=== PATIENT | female | born 1955 | race Caucasian/White ===

== ENCOUNTER 2019-06-20 15:04 | Emergency (ER) | payer MEDICARE ==
[2019-06-20] MEDS ORDERED: DUONEB 0.5-3 MG/3 ml Neb IH ONE ×2 (15:33→15:34)
[2019-06-20] MEDS ORDERED: PROVENTIL 2.5 MG/3 ML NEB IH ONE ×4 (15:33→16:25)
[2019-06-20 15:34] LABS: VBG BASE EXCESS 6.3 (-2.0-2.0); VBG CARBOXYHEMOGLOBIN 3.9 % T HGB (0.0-6.9); VBG HCO3- 29.5 meq/L (22-28); VBG HEMOGLOBIN 15.8; VBG O2 SATURATION 69.1 (95-100); VBG POTASSIUM 6.3 (3.5-5.1); VBG pH 7.51 (7.32-7.42)
--- NOTE | 2019-06-20 15:36 | ERPHSYRPT ---
- History of Present Illness Time Seen by Provider: 06/20/19 15:15 Source: family Exam Limitations: clinical condition, other (Altered mental status) Physician History: the patient is a 63-year-old female with a past history reported to be a recent stroke or bleed diagnosed by her primary care provider, Dr. Almanza, on June 16, 2019 after she was noted to have episodes of confusion and difficulty speaking a week prior to that they presents with a chief complaint of altered mental status. She is accompanied by her daughter and her granddaughter who live with the patient. They report the patient poorly was talking to them yesterday but as the day progressed today she seemed to be more confused and was not talking or acting like her normal self. Is also noted the patient was started on azithromycin on June 16, 2019 for concern for what was believed to be pneumonia after the patient had some difficulty breathing, cough and wheezing. Of note, the patient has a history of COPD but does not have a history of sleep apnea and does not use CPAP for oxygen at home. Patient also has a history of a recently fractured left ankle in which she underwent surgical repair in [place] this past summer and reportedly has been on anticoagulation, specifically Eloquis since that time. Allergies/Adverse Reactions: meperidine [From Demerol] Allergy (Severe, Verified 06/20/19 15:36) sycope Sulfa (Sulfonamide Antibiotics) Allergy (Verified 10/12/15 15:13) Rash Home Medications: Albuterol Sulfate [Ventolin Hfa] 18 gm IH QID 11/22/14 [History] Levothyroxine Sodium 112 Mcg [Synthroid 112 Mcg] 112 mcg PO DAILY 11/22/14 [History] Lorazepam 1 mg [Ativan 1 MG] 2 mg PO QPM 11/22/14 [History] Montelukast Sodium [Singulair] 10 mg PO DAILY 11/22/14 [History] Nebivolol HCl [Bystolic] 20 mg PO DAILY 11/22/14 [History] Nitroglycerin 0.4 mg SL UD PRN 11/22/14 [History] Paroxetine HCl [Paxil] 30 mg PO HS 11/22/14 [History] Theophylline Anhydrous 600 mg PO DAILY 11/22/14 [History] Verapamil HCl [Verapamil ER] 120 mg PO HS 04/22/15 [History] Albuterol Sulfate 4 mg PO DAILY 10/12/15 [History] Ipratropium/Albuterol Sulfate [Combivent Inhaler] 15 gm IH QID 10/12/15 [History ] Albuterol Sulfate [Ventolin] 5 mg IH DAILY 06/20/19 [History] Apixaban [Eliquis] 5 mg PO BID 06/20/19 [History] Baclofen 10 mg [Lioresal 10 mg] 10 mg PO QID 06/20/19 [History] Calcium Carbonate 1,000 mg PO DAILY PRN 06/20/19 [History] Doxepin HCl 25 mg PO HS 06/20/19 [History] Fenofibrate,Micronized 145 mg* [Tricor 145 MG] 145 mg PO HS 06/20/19 [History ] Furosemide [Lasix] 20 mg PO DAILY 06/20/19 [History] Losartan Potassium 100 mg PO DAILY 06/20/19 [History] Omeprazole Magnesium [Prilosec] 20 mg PO DAILY 06/20/19 [History] Simvastatin 20Mg [Zocor 20Mg] 20 mg PO QPM 06/20/19 [History] Sitagliptin Phosphate [Januvia] 100 mg PO DAILY 06/20/19 [History] Tramadol HCl 50 mg [Ultram 50 mg] 50 mg PO DAILY 06/20/19 [History] Umeclidinium [place] [Incruse Ellipta] 62.5 mcg IH DAILY 06/20/19 [History] Hx Tetanus, Diphtheria Vaccination/Date Given: Yes Hx Influenza Vaccination/Date Given: No Hx Pneumococcal Vaccination/Date Given: No - Review of Systems All Other Systems: Unable due to condition - Past Medical History Pertinent Past Medical History: Yes Neurological History: Seizures Cardiac History: Angina, Congestive Heart Failure, Coronary Artery Disease, High Cholesterol, Hypertension, Myocardial Infarction (MS) Respiratory History: Bronchitis, COPD, Emphysema, Pneumonia Endocrine Medical History: Diabetes Type II, Hypothyroidism Musculoskeletal History: Fractures Psycho-Social History: Depression Other Medical History: ULNAR TRANSPOSITION >10 YEARS AGO. HYSTERECTOMY, BLADDER SUSPENSION - Past Surgical History Past Surgical History: Yes Cardiac: Cardiac Catheterization Genitourinary: Other Musculoskeletal: Orthopedic Surgery Female Surgical History: Hysterectomy Other Surgical History: Bladder prolapse, carpel tunnel--BILAT - Social History Smoking Status: Current every day smoker Exposure to second hand smoke: Yes Drug Use: none Patient Lives Alone: Yes - Nursing Vital Signs Nursing Vital Signs: Initial Vital Signs Temperature 97.7 F 06/20/19 15:12 Pulse Rate 52 L 06/20/19 15:12 Respiratory Rate 24 06/20/19 15:12 Blood Pressure 173/109 06/20/19 15:12 O2 Sat by Pulse Oximetry 92 L 06/20/19 15:12 Pain Scale Pain Intensity 0 - Physical Exam General Appearance: mild distress, obese Eye Exam: PERRL/EOMI, eyes nml inspection, No scleral icterus, No pale conjunctivae Ears, Nose, Throat Exam: other (Dry mucus membranes, no evidence of tongue trauma) Neck Exam: JVD, No non-tender, No midline tenderness Respiratory Exam: respiratory distress, diminished breath sounds, crackles/rales , wheezing, other (Prolonged expiratory time with bilateral cour) Cardiovascular Exam: normal peripheral pulses, capillary refill <2 sec, other ( Bradycardia), No regular rate/rhythm (Bradycardia with strong peripheral pulses) Gastrointestinal/Abdomen Exam: soft Pelvic Exam: deferred Rectal Exam: deferred Back Exam: normal inspection Extremity Exam: normal inspection, No pedal edema, No swelling, No tenderness Neurologic Exam: other (Patient seems somnolent, but able to be awoke to voice and tell me her name. She would not obey commands. Unable able to assess mood due to clinical condition. Patient seems to be able to move all extremities) Skin Exam: normal color, warm, dry, No petechiae, No jaundice, No jaundice SpO2 Interpretation: normal O2 Delivery: Room Air - Course Nursing assessment & vital signs reviewed: Yes EKG Interpreted by Me: Left [place] Deviation, prolonged QT interval, NORMAL ST-T, Other (EKG read at 15:30) - Radiology Exams Chest X-ray Interpretation: Interpreted by me, Reviewed by me, Teleradiologist Report , Pneumonia (Poor inspiration film and patient is rotated but evidence of possible right lower lobe pna) - CT Exams Head CT Interpretation: Tele-radiologist Report (Old appearing basal ganglia CVA and possible air in R patternmaker pressure cast space. Discussed with radiology and recommendeding max face CT) Maxillofacial Bones CT Interpretation: Tele-radiologist Report (Air in patternmaker pressure cast space of no clinical significance according to radiologist) Ordered Tests: Medication Summary Discontinued Medications Generic Name Dose Route Start Last Admin Trade Name Charlene PRN Reason Stop Dose Admin Albuterol Sulfate 2.5 mg 06/20/19 15:33 06/20/19 15:52 Proventil 2.5 Mg/3 Ml Neb IH 06/20/19 15:34 2.5 mg STAT ONE Administration Albuterol Sulfate Confirm 06/20/19 15:34 Proventil 2.5 Mg/3 Ml Neb Administered 06/20/19 15:35 Dose 2.5 mg IH .STK-MED ONE Albuterol Sulfate Confirm 06/20/19 16:11 Proventil 2.5 Mg/3 Ml Neb Administered 06/20/19 16:12 Dose 2.5 mg IH .STK-MED ONE Albuterol Sulfate 2.5 mg 06/20/19 16:25 06/20/19 16:26 Proventil 2.5 Mg/3 Ml Neb IH 06/20/19 16:26 2.5 mg STAT ONE Administration Albuterol/Ipratropium 3 ml 06/20/19 15:33 06/20/19 15:35 Duoneb 0.5-3 Mg/3 Ml Neb IH 06/20/19 15:34 3 ml STAT ONE Administration Albuterol/Ipratropium Confirm 06/20/19 15:34 Duoneb 0.5-3 Mg/3 Ml Neb Administered 06/20/19 15:35 Dose 3 ml IH .STK-MED ONE Azithromycin 500 mg in 250 mls @ 250 mls/hr 06/20/19 16:21 06/20/19 16:40 Zithromax 500 Mg/ 250 Ml Nacl Premix IV 06/20/19 17:20 250 mls/hr STAT ONE Administration Ceftriaxone Sodium/Dextrose 2 g in 50 mls @ 100 mls/hr 06/20/19 16:21 17:04 Rocephin 2 Gm-D5w 50ml Bag IV 06/20/19 16:50 Infused STAT STA Infusion Azithromycin Confirm 06/20/19 16:24 Zithromax 500 Mg/ 250 Ml Nacl Premix Administered 06/20/19 16:25 Dose 500 mg in 250 mls @ ud IV .STK-MED ONE Ceftriaxone Sodium/Dextrose Confirm 06/20/19 16:24 Rocephin 2 Gm-D5w 50ml Bag Administered 06/20/19 16:25 Dose 2 g in 50 mls @ ud IV .STK-MED ONE Methylprednisolone Sodium Succinate 125 mg 06/20/19 16:19 06/20/19 16:28 Solu-Medrol 125 Mg IV 06/20/19 16:20 125 mg STAT ONE Administration Methylprednisolone Sodium Succinate Confirm 06/20/19 16:24 Solu-Medrol 125 Mg Administered 06/20/19 16:25 Dose 125 mg .ROUTE .STK-MED ONE Lab/Rad Data: Laboratory Result Diagrams 06/20/19 16:15 06/20/19 Unknown Laboratory Results 06/20/19 06/20/19 06/20/19 Range/Units Unknown Unknown 16:15 WBC (4.0-10.5) K/mm3 RBC (4.1-5.4) M/mm3 Hgb (12.0-16.0) gm/dl Hct (35-47) % MCV (78-100) fl MCH (26-32) pg MCHC (32-36) g/dl RDW (11.5-14.0) % Plt Count (150-450) K/mm3 MPV (6-9.5) fl Segmented Neutrophils (36.0-66.0) % Lymphocytes (Manual) (24-44) % Monocytes (Manual) (0.0-12.0) % Eosinophils (Manual) (0.00-3.0) % Platelet Estimate (NORMAL) RBC Morphology Poikilocytosis Anisocytosis pO2/FiO2 Ratio % VBG pH (7.32-7.42) VBG pCO2 at Pat Temp (42-55) mm/Hg VBG pO2 at Pat Temp (25-40) mm/Hg VBG HCO3 (22-28) meq/L VBG O2 Sat (Beatriz) (95-100) VBG Base Excess (-2.0-2.0) VBG Hemoglobin VBG Carboxyhemoglobin (0.0-6.9) % T HGB POC Potassium (3.5-5.1) Sodium 144 (137-145) mmol/L Potassium 4.0 (3.5-5.1) mmol/L Chloride 105 (98-107) mmol/L Carbon Dioxide 31 H (22-30) mmol/L Anion Gap 11.4 (5-15) MEQ/L BUN 30 H (7-17) mg/dL Creatinine 1.71 H (0.52-1.04) mg/dL Estimated GFR 32.2 ML/MIN Glucose 92 (74-106) mg/dL Lactic Acid (0.4-2.0) Calcium 10.0 (8.4-10.2) mg/dL Total Bilirubin 0.60 (0.2-1.3) mg/dL Direct Bilirubin 0.5 H (0.0-0.4) mg/dL AST 29 (14-36) U/L ALT 9 (0-35) U/L Alkaline Phosphatase 66 (38-126) U/L Ammonia (9-30) umol/L Troponin I (0.000-0.034) ng/mL NT-Pro-B Natriuret Pep 2380 H (0-900) pg/mL Serum Total Protein 7.9 (6.3-8.2) g/dL Albumin 4.2 (3.5-5.0) g/dL TSH 3rd Generation (0.47-4.68) mIU/L Urine Color YELLOW (YELLOW) Urine Appearance CLEAR (CLEAR) Urine pH 8.0 (5-6) Ur Specific [place] 1.015 (1.005-1.025) Urine Protein NEGATIVE (Negative) Urine Ketones NEGATIVE (NEGATIVE) Urine Blood SMALL (0-5) David/ul Urine Nitrite NEGATIVE (NEGATIVE) Urine Bilirubin NEGATIVE (NEGATIVE) Urine Urobilinogen NEGATIVE (0-1) mg/dL Ur Leukocyte Esterase NEGATIVE (NEGATIVE) Urine WBC (Auto) NONE (0-5) /HPF Urine RBC (Auto) 3-5 (0-2) /HPF U Epithel Cells (Auto) NONE (FEW) /HPF Urine Bacteria (Auto) RARE (NEGATIVE) /HPF Urine Culture Reflexed ORDERED SEPARATELY (NO) Urine Glucose NEGATIVE (NEGATIVE) mg/dL Influenza Type A Ag NEGATIVE (NEGATIVE) Influenza Type B Ag NEGATIVE (NEGATIVE) RSV (PCR) NEGATIVE (Negative) 06/20/19 06/20/19 06/20/19 Range/Units 16:15 16:15 16:15 WBC (4.0-10.5) K/mm3 RBC (4.1-5.4) M/mm3 Hgb (12.0-16.0) gm/dl Hct (35-47) % MCV (78-100) fl MCH (26-32) pg MCHC (32-36) g/dl RDW (11.5-14.0) % Plt Count (150-450) K/mm3 MPV (6-9.5) fl Segmented Neutrophils (36.0-66.0) % Lymphocytes (Manual) (24-44) % Monocytes (Manual) (0.0-12.0) % Eosinophils (Manual) (0.00-3.0) % Platelet Estimate (NORMAL) RBC Morphology Poikilocytosis Anisocytosis pO2/FiO2 Ratio % VBG pH (7.32-7.42) VBG pCO2 at Pat Temp (42-55) mm/Hg VBG pO2 at Pat Temp (25-40) mm/Hg VBG HCO3 (22-28) meq/L VBG O2 Sat (Beatriz) (95-100) VBG Base Excess (-2.0-2.0) VBG Hemoglobin VBG Carboxyhemoglobin (0.0-6.9) % T HGB POC Potassium (3.5-5.1) Sodium (137-145) mmol/L Potassium (3.5-5.1) mmol/L Chloride (98-107) mmol/L Carbon Dioxide (22-30) mmol/L Anion Gap (5-15) MEQ/L BUN (7-17) mg/dL Creatinine (0.52-1.04) mg/dL Estimated GFR ML/MIN Glucose (74-106) mg/dL Lactic Acid (0.4-2.0) Calcium (8.4-10.2) mg/dL Total Bilirubin (0.2-1.3) mg/dL Direct Bilirubin (0.0-0.4) mg/dL AST (14-36) U/L ALT (0-35) U/L Alkaline Phosphatase (38-126) U/L Ammonia < 9 L (9-30) umol/L Troponin I < 0.012 (0.000-0.034) ng/mL NT-Pro-B Natriuret Pep (0-900) pg/mL Serum Total Protein (6.3-8.2) g/dL Albumin (3.5-5.0) g/dL TSH 3rd Generation 19.700 H (0.47-4.68) mIU/L Urine Color (YELLOW) Urine Appearance (CLEAR) Urine pH (5-6) Ur Specific [place] (1.005-1.025) Urine Protein (Negative) Urine Ketones (NEGATIVE) Urine Blood (0-5) David/ul Urine Nitrite (NEGATIVE) Urine Bilirubin (NEGATIVE) Urine Urobilinogen (0-1) mg/dL Ur Leukocyte Esterase (NEGATIVE) Urine WBC (Auto) (0-5) /HPF Urine RBC (Auto) (0-2) /HPF U Epithel Cells (Auto) (FEW) /HPF Urine Bacteria (Auto) (NEGATIVE) /HPF Urine Culture Reflexed (NO) Urine Glucose (NEGATIVE) mg/dL Influenza Type A Ag (NEGATIVE) Influenza Type B Ag (NEGATIVE) RSV (PCR) (Negative) 06/20/19 06/20/19 06/20/19 Range/Units 16:15 15:32 15:32 WBC 15.9 H (4.0-10.5) K/mm3 RBC 5.28 (4.1-5.4) M/mm3 Hgb 13.7 (12.0-16.0) gm/dl Hct 44.0 (35-47) % MCV 83.3 (78-100) fl MCH 25.9 L (26-32) pg MCHC 31.1 L (32-36) g/dl RDW 17.2 H (11.5-14.0) % Plt Count 236 (150-450) K/mm3 MPV 12.5 H (6-9.5) fl Segmented Neutrophils 83 H (36.0-66.0) % Lymphocytes (Manual) 11 L (24-44) % Monocytes (Manual) 3 (0.0-12.0) % Eosinophils (Manual) 3 (0.00-3.0) % Platelet Estimate NORMAL (NORMAL) RBC Morphology ABNORMAL Poikilocytosis 1+ Anisocytosis 2+ pO2/FiO2 Ratio 21.0 % VBG pH 7.51 H (7.32-7.42) VBG pCO2 at Pat Temp 37 L (42-55) mm/Hg VBG pO2 at Pat Temp 33 (25-40) mm/Hg VBG HCO3 29.5 H* (22-28) meq/L VBG O2 Sat (Beatriz) 69.1 L (95-100) VBG Base Excess 6.3 H (-2.0-2.0) VBG Hemoglobin 15.8 VBG Carboxyhemoglobin 3.9 (0.0-6.9) % T HGB POC Potassium 6.3 H* (3.5-5.1) Sodium (137-145) mmol/L Potassium (3.5-5.1) mmol/L Chloride (98-107) mmol/L Carbon Dioxide (22-30) mmol/L Anion Gap (5-15) MEQ/L BUN (7-17) mg/dL Creatinine (0.52-1.04) mg/dL Estimated GFR ML/MIN Glucose (74-106) mg/dL Lactic Acid 1.6 (0.4-2.0) Calcium (8.4-10.2) mg/dL Total Bilirubin (0.2-1.3) mg/dL Direct Bilirubin (0.0-0.4) mg/dL AST (14-36) U/L ALT (0-35) U/L Alkaline Phosphatase (38-126) U/L Ammonia (9-30) umol/L Troponin I (0.000-0.034) ng/mL NT-Pro-B Natriuret Pep (0-900) pg/mL Serum Total Protein (6.3-8.2) g/dL Albumin (3.5-5.0) g/dL TSH 3rd Generation (0.47-4.68) mIU/L Urine Color (YELLOW) Urine Appearance (CLEAR) Urine pH (5-6) Ur Specific [place] (1.005-1.025) Urine Protein (Negative) Urine Ketones (NEGATIVE) Urine Blood (0-5) David/ul Urine Nitrite (NEGATIVE) Urine Bilirubin (NEGATIVE) Urine Urobilinogen (0-1) mg/dL Ur Leukocyte Esterase (NEGATIVE) Urine WBC (Auto) (0-5) /HPF Urine RBC (Auto) (0-2) /HPF U Epithel Cells (Auto) (FEW) /HPF Urine Bacteria (Auto) (NEGATIVE) /HPF Urine Culture Reflexed (NO) Urine Glucose (NEGATIVE) mg/dL Influenza Type A Ag (NEGATIVE) Influenza Type B Ag (NEGATIVE) RSV (PCR) (Negative) - Progress Progress: improved Progress Note: 06/20/19 16:35 I spoke to the patient's family and informed them about the need for transfer to a center with neurology and MRI capability. Family agrees to transfer to [facility]. [facility] is currently being paged. 06/20/19 16:[address] Berger, ED physician, who agreed to accept the patient for transfer. The patient will be an ED to ED transfer. Counseled pt/family regarding: lab results, diagnosis, rad results - Departure Departure Disposition: Transfer Clinical Impression: COPD with exacerbation, Pneumonia, Acute encephalopathy, Sepsis, Right lower lobe pneumonia Condition: Stable Critical Care Time: Yes Critical Care Time(excluding separately billable procedures): Critical 30-74 mins Referrals: VIOLET WANG [Primary Care Provider] - Plan of Treatment: The patient presents with AMS and found to be in respiratory distress with wheezing. AMS differential is extensive at this time to include CVA subacute vs old given time course and patient is not a TPA candidate given time course being greater than 3hrs and patient on anticoagulation, medication induced to induce ativan, tramadol, etc., ?serotonin syndrome but I feel this is unlikely, encephalitis vs meningitis but with low suspicion and LP deferred given patient on anticoagulation and respiratory status. She appears to be suffering from a COPD exacerbation and VBG without evidence of hypercapnia to explain her encephalopathy and actually was reassuring. She was treated with serial nebs and steriods in the ED with some noted improvement. CXR also showing RLL infiltrate that could be from a community acquired PNA or represent an aspiration PNA given the context of her recently reported CVA and no reported swallowing study. Ultimately, she was treated with abx and transferred to [facility] for further evaluation and management given no MRI or neurology capability at this facility. Her respiratory status improved and she was able to maintain her own airway during her entire ED stay.
--- NOTE | 2019-06-20 16:11 | XRAY ---
Indication: Unresponsive. Wheezing. Comparison: June 16, 2019. Portable chest is rotated with new right base infiltrate/atelectasis/effusion with stable left base fibrosis/scarring. Heart and mediastinal structures within normal limits.
--- NOTE | 2019-06-20 16:14 | XRAY ---
Indication: Altered mental status. Multiple contiguous axial images obtained through the head without contrast. Comparison: June 16, 2019. Again several images slightly degraded by motion artifact. Grossly stable age-appropriate global atrophy and remote right basal ganglia lacunar infarct. No gross acute intracranial hemorrhage, abnormal extra-axial fluid question, or mass effect. Fourth ventricle is midline without hydrocephalus. Blanchard-white matter differentiation preserved. Bony calvarium intact again with mild hyperostosis frontalis interna. Visualized paranasal sinuses and mastoid air cells remain clear. New air bubbles in the deep right antique auto museum maintenance worker space and adjacent to the right pterygoid plates. Impression: 1. Again motion artifact with grossly stable atrophy and remote right basal ganglial lacunar infarct. 2. No acute intracranial abnormalities. 3. New air bubbles deep right antique auto museum maintenance worker space. Rule out posttraumatic etiology or gas-forming infection. CTDI 62.11
[2019-06-20] MEDS ORDERED: solu-MEDROL 125 MG IV ONE (16:19)
[2019-06-20] MEDS ORDERED: Zithromax 500 MG/ 250 ML NaCl Premix 500 MG/250 ML IVPB IV ONE ×2 (16:21→16:24)
[2019-06-20] MEDS ORDERED: ROCEPHIN 2 Gm-D5w 50ML BAG** 2 G/50 ML IVPB IV STA (16:21)
[2019-06-20] MEDS ORDERED: solu-MEDROL 125 MG ONE (16:24)
[2019-06-20] MEDS ORDERED: ROCEPHIN 2 Gm-D5w 50ML BAG** 2 G/50 ML IVPB IV ONE (16:24)
[2019-06-20 16:28] LABS: Hemoglobin 13.7 gm/dl (12.0-16.0); Mean Cell Volume 83.3 fl (78-100); Mean Corpuscular Hemoglobin 25.9 pg (26-32); Mean Corpuscular Hgb Concent. 31.1 g/dl (32-36); Mean Platelet Volume 12.5 fl (6-9.5); Platelet Count 236 K/mm3 (150-450); Red Blood Count 5.28 M/mm3 (4.1-5.4); Red Cell Distribution Width 17.2 % (11.5-14.0); White Blood Count 15.9 K/mm3 (4.0-10.5)
[2019-06-20 16:44] LABS: Appearance CLEAR (CLEAR); Bacteria RARE /HPF (NEGATIVE); Bilirubin NEGATIVE (NEGATIVE); Blood SMALL Ery/ul (0-5); Glucose NEGATIVE (NEGATIVE); Ketones NEGATIVE (NEGATIVE); Leukocyte Esterase NEGATIVE (NEGATIVE); Nitrite NEGATIVE (NEGATIVE); Protein,Urine Dip NEGATIVE (Negative); Specific Gravity 1.015 (1.005-1.025); Urobilinogen NEGATIVE mg/dL (0-1)
[2019-06-20 16:48] LABS: ALBUMIN 4.2 g/dL (3.5-5.0); ANION GAP 11.4 MEQ/L (5-15); BILIRUBIN,TOTAL 0.6 mg/dL (0.2-1.3); Creatinine 1 1.71 mg/dL (0.52-1.04); Direct Bilirubin 0.5 mg/dL (0.0-0.4); Total Protein 7.9 g/dL (6.3-8.2)
[2019-06-20 16:52] VITALS: O2SAT 98
[2019-06-20 17:03] VITALS: BP 169/85; PULSE 58
--- NOTE | 2019-06-20 17:04 | XRAY ---
Indication: Air bubbles seen deep right grain drier space on same-day CT head. Altered mental status. No known injury. Multiple contiguous axial images obtained through the facial bones. Two-dimensional sagittal and coronal reformatted images obtained. Comparison: None Patient is edentulous. A few tiny air bubbles reidentified in the deep right grain drier space. No acute fracture, suspicious bony lesions, osseous obstructive process, or foreign body. Orbits including roof, aguilar, and floor are intact. TMJ demonstrates mild degenerative changes bilaterally. Paranasal sinuses and nasal passages are clear. Minimal nasal septal deviation to the right. Nasopharynx and oropharynx are clear. Remaining visualized noncontrasted soft tissues are unremarkable. Impression: 1. CT facial bones negative for acute fracture or suspicious bony lesions. 2. Air bubbles deep right grain drier space of uncertain etiology and uncertain clinical significance. 3. Incidental bilateral TMJ degenerative changes. CT DI 43.14
[2019-06-20 17:18] LABS: INFLUENZA A NEGATIVE (NEGATIVE); INFLUENZA B NEGATIVE (NEGATIVE); RESPIRATORY SYNCTIAL VIRUS NEGATIVE (Negative)
[2019-06-20 19:31] LABS: ANISOCYTOSIS 2+; Eosinophil 3 % (0.00-3.0); Lymphocytes 11 % (24-44); Monocyte 3 % (0.0-12.0); Neutrophils 83 % (36.0-66.0); Platelet Estimate NORMAL (NORMAL); Poikilocytosis 1+; Total Cells Counted 100
== END 2019-06-20 17:22 | disposition short-term general hospital (02) ==
LOC: ED 15:04
DX: J44.1 Chronic obstructive pulmonary disease with (acute) exacerbation (principal); J18.1 Lobar pneumonia, unspecified organism; G93.40 Encephalopathy, unspecified; A41.9 Sepsis, unspecified organism; R41.82 Altered mental status, unspecified; I25.10 Atherosclerotic heart disease of native coronary artery without angina pectoris
CPT/HCPCS: 36415; 51702; 70450; 70486; 71045; 80048; 80076; 81001; 82140; 82805; 83605; 83880; 84443; 84484; 85025; 87040; 87086; 87631; 93005; 93041; 94640; 96365; 96374; 99285; 99291; J0456; J0696; J2930; J7609; A9270-GY

== ENCOUNTER 2019-08-02 10:51 | Emergency (ER) | payer MEDICARE ==
[2019-08-02] MEDS ORDERED: Zithromax 500 MG/ 250 ML NaCl Premix 500 MG/250 ML IVPB IV STA (11:06)
[2019-08-02] MEDS ORDERED: BABY ASPIRIN 81 MG CHEW PO ONE (11:06)
[2019-08-02] MEDS ORDERED: ROCEPHIN 1 Gm-D5w 50 ml Bag** 1 G/50 ML IVPB IV STA (11:06)
[2019-08-02] MEDS ORDERED: DUONEB 0.5-3 MG/3 ml Neb IH ONE ×2 (11:06→11:09)
[2019-08-02] MEDS ORDERED: solu-MEDROL 125 MG IV ONE (11:08)
--- NOTE | 2019-08-02 11:35 | ERPHSYRPT ---
- History of Present Illness Time Seen by Provider: 08/02/19 11:00 Source: patient, family Exam Limitations: no limitations Patient Subjective Stated Complaint: INCREASED SHORTNESS OF BREATH, COUGH AND FEVER AT HOME FOR ONE WEEK. HX COPD. COUGHING UP YELLOW SPUTUM. WENT TO [facility] THIS AM AND O2 SAT WAS LOW AT 70. WAS THEN BROUGHT TO ER. Triage Nursing Assessment: TO ER PER W/C. SKIN W/D, COLOR CYANOTIC. RESP RAPID AND SHALLOW. WHEEZES HEARD THROUGHOUT WITH RONCHI. OCCASIONAL DRY COUGH NOTED. OXYGEN APPLIED AT 4l PER N/C. SAT INCREASED TO 98%. RT NOTIFIED. Physician History: known case of COPD , CAD and CHF. There continues to smoke and states she does not have adequately worsening shortness of breath over the last one week along with the cough and sputum. Went to the urgent care and they sent her here. Timing/Duration: week(s) (1) Activities at Onset: activity Severity of Dyspnea-Max: moderate Severity of Dyspnea-Current: moderate Possible Cause: frequent episodes Modifying Factors: Improves With: activity, exertion, lying down Associated Symptoms: constant, wheezing, painful breathing, productive cough, No chest pain/discomfort, No edema, No fever, No insomnia, No loss of appetite, No lightheadedness, No weakness, No ankle swelling, No chills, No hemoptysis, No calf pain, No dizziness, No heaviness, No heart racing, No lightheadedness, No leg swelling, No muscle spasms feet International travel in last 2 weeks: No Allergies/Adverse Reactions: meperidine [From Demerol] Allergy (Severe, Verified 08/02/19 11:55) sycope Sulfa (Sulfonamide Antibiotics) Allergy (Verified 08/02/19 11:55) Rash tramadol Allergy (Verified 08/02/19 11:55) Home Medications: Albuterol Sulfate [Ventolin Hfa] 18 gm IH QID 11/22/14 [History] Levothyroxine Sodium 112 Mcg [Synthroid 112 Mcg] 112 mcg PO DAILY 11/22/14 [History] Lorazepam 1 mg [Ativan 1 MG] 2 mg PO QPM 11/22/14 [History] Montelukast Sodium [Singulair] 10 mg PO DAILY 11/22/14 [History] Nebivolol HCl [Bystolic] 20 mg PO DAILY 11/22/14 [History] Nitroglycerin 0.4 mg SL UD PRN 11/22/14 [History] Paroxetine HCl [Paxil] 30 mg PO HS 11/22/14 [History] Theophylline Anhydrous 600 mg PO DAILY 11/22/14 [History] Verapamil HCl [Verapamil ER] 120 mg PO HS 11/22/14 [History] Albuterol Sulfate 4 mg PO DAILY 10/12/15 [History] Ipratropium/Albuterol Sulfate [Combivent Inhaler] 15 gm IH QID 10/12/15 [History ] Albuterol Sulfate [Ventolin] 5 mg IH DAILY 06/20/19 [History] Apixaban [Eliquis] 5 mg PO BID 06/20/19 [History] Baclofen 10 mg [Lioresal 10 mg] 10 mg PO QID 06/20/19 [History] Calcium Carbonate 1,000 mg PO DAILY PRN 06/20/19 [History] Doxepin HCl 25 mg PO HS 06/20/19 [History] Fenofibrate,Micronized 145 mg* [Tricor 145 MG] 145 mg PO HS 06/20/19 [History ] Furosemide [Lasix] 20 mg PO DAILY 06/20/19 [History] Losartan Potassium 100 mg PO DAILY 06/20/19 [History] Omeprazole Magnesium [Prilosec] 20 mg PO DAILY 06/20/19 [History] Simvastatin 20Mg [Zocor 20Mg] 20 mg PO QPM 06/20/19 [History] Sitagliptin Phosphate [Januvia] 100 mg PO DAILY 06/20/19 [History] Tramadol HCl 50 mg [Ultram 50 mg] 50 mg PO DAILY 06/20/19 [History] Umeclidinium [place] [Incruse Ellipta] 62.5 mcg IH DAILY 06/20/19 [History] Hx Tetanus, Diphtheria Vaccination/Date Given: Yes Hx Influenza Vaccination/Date Given: Yes Hx Pneumococcal Vaccination/Date Given: Yes - Review of Systems Constitutional: No Fever, No Chills Eyes: No Symptoms Ears, Nose, & Throat: No Symptoms Respiratory: Cough, Dyspnea, Wheezing Cardiac: No Chest Pain, No Edema, No Syncope Abdominal/Gastrointestinal: No Abdominal Pain, No Nausea, No Vomiting, No Diarrhea Genitourinary Symptoms: No Dysuria Musculoskeletal: No Back Pain, No Neck Pain Skin: No Rash Neurological: No Dizziness, No Focal Weakness, No Sensory Changes Psychological: No Symptoms Endocrine: No Symptoms All Other Systems: Reviewed and Negative - Past Medical History Pertinent Past Medical History: Yes Neurological History: Seizures Cardiac History: Angina, Congestive Heart Failure, Coronary Artery Disease, High Cholesterol, Hypertension, Myocardial Infarction ([place]) Respiratory History: Bronchitis, COPD, Emphysema, Pneumonia Endocrine Medical History: Diabetes Type II, Hypothyroidism Musculoskeletal History: Fractures Psycho-Social History: Depression Other Medical History: ULNAR TRANSPOSITION >10 YEARS AGO. HYSTERECTOMY, BLADDER SUSPENSION - Past Surgical History Past Surgical History: Yes Cardiac: Cardiac Catheterization Genitourinary: Other Musculoskeletal: Orthopedic Surgery Female Surgical History: Hysterectomy Other Surgical History: Bladder prolapse, carpel tunnel--BILAT - Social History Smoking Status: Current every day smoker How long have you smoked: 47 Exposure to second hand smoke: Yes Drug Use: none Patient Lives Alone: No - Nursing Vital Signs Nursing Vital Signs: Initial Vital Signs Temperature 97.4 F 08/02/19 10:52 Pulse Rate 63 08/02/19 10:52 Respiratory Rate 28 H 08/02/19 10:52 Blood Pressure 170/85 08/02/19 10:52 O2 Sat by Pulse Oximetry 70 L 08/02/19 10:52 Pain Scale Pain Intensity 0 - Physical Exam General Appearance: no apparent distress, alert Eye Exam: PERRL/EOMI Ears, Nose, Throat Exam: hearing grossly normal, normal ENT inspection Neck Exam: normal inspection, supple Respiratory Exam: diminished breath sounds, prolonged expirations, wheezing, No chest tenderness, No lungs clear, No accessory muscle use Cardiovascular/Chest Exam: normal heart sounds, regular rate/rhythm Abdominal/Gastrointestinal Exam: soft, No tenderness, No distention, No mass Extremity Exam: non-tender, normal range of motion, normal inspection, no calf tenderness, no pedal edema Neurologic Exam: alert, oriented x 3, cooperative, 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 as tested, sensation nml, No motor deficits Skin Exam: normal color, warm, No dry SpO2 Interpretation: hypoxic SpO2: 94 O2 Delivery: Room Air - Course Nursing assessment & vital signs reviewed: Yes EKG Interpreted by Me: RATE, Sinus Dino, NORMAL AXIS, Left Bundle Branch Block - Radiology Exams Chest X-ray Interpretation: Discussed w/ radiologist, No Infiltrates Ordered Tests: Active Orders 24 hr Category Date Time Status 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 Yardman STAT Care 08/02/19 11:07 Active EKG-ER Only STAT Care 08/02/19 11:06 Active IV Insertion STAT Care 08/02/19 11:06 Active Oxygen-ED Only Nasal Cannula 2 lpm Care 08/02/19 11:06 Active CHEST 1 VIEW (PORTABLE) Stat Exams 08/02/19 11:06 Completed BLOOD CULTURE Stat Lab 08/02/19 11:35 Ordered CK-Creatinine Phosphokinase Stat Lab 08/02/19 11:06 Completed CMP Stat Lab 08/02/19 11:06 Completed Lactic Acid Stat Lab 08/02/19 11:20 Completed NT PRO BNP Stat Lab 08/02/19 11:06 Completed TROPONIN Q3H Lab 08/02/19 11:35 Completed TROPONIN Q3H Lab 08/02/19 14:15 Ordered TROPONIN Q3H Lab 08/02/19 17:15 Ordered TROPONIN Q3H Lab 08/02/19 20:15 Ordered TROPONIN Q3H Lab 08/02/19 23:15 Ordered Respiratory Therapy Assessment ONCE RT 08/02/19 11:13 Active Medication Summary Discontinued Medications Generic Name Dose Route Start Last Admin Trade Name Freq PRN Reason Stop Dose Admin Albuterol/Ipratropium 3 ml 08/02/19 11:06 08/02/19 11:11 Duoneb 0.5-3 Mg/3 Ml Neb IH 08/02/19 11:07 3 ml STAT ONE Administration Albuterol/Ipratropium Confirm 08/02/19 11:09 Duoneb 0.5-3 Mg/3 Ml Neb Administered 08/02/19 11:10 Dose 3 ml IH .STK-MED ONE Aspirin 324 mg 08/02/19 11:06 08/02/19 12:01 Baby Aspirin 81 Mg Chew PO 08/02/19 11:07 324 mg STAT ONE Administration Aspirin Confirm 08/02/19 11:36 Baby Aspirin 81 Mg Chew Administered 08/02/19 11:37 Dose 324 mg .ROUTE .STK-MED ONE Ceftriaxone Sodium/Dextrose 1 g in 50 mls @ 100 mls/hr 08/02/19 11:06 11:58 Rocephin 1 Gm-D5w 50 Ml Bag IV 08/02/19 11:35 100 ml/hr STAT STA 100 mls/hr Administration Azithromycin 500 mg in 250 mls @ 250 mls/hr 08/02/19 11:06 08/02/19 12:20 Zithromax 500 Mg/ 250 Ml Nacl Premix IV 08/02/19 12:05 250 mls/hr STAT STA 250 mls/hr Administration Azithromycin Confirm 08/02/19 11:36 Zithromax 500 Mg/ 250 Ml Nacl Premix Administered 08/02/19 11:37 Dose 500 mg in 250 mls @ ud IV .STK-MED ONE Ceftriaxone Sodium/Dextrose Confirm 08/02/19 11:36 Rocephin 1 Gm-D5w 50 Ml Bag Administered 08/02/19 11:37 Dose 1 g in 50 mls @ ud IV .STK-MED ONE Methylprednisolone Sodium Succinate 125 mg 08/02/19 11:08 08/02/19 12:00 Solu-Medrol 125 Mg IV 08/02/19 11:09 125 mg STAT ONE Administration Methylprednisolone Sodium Succinate Confirm 08/02/19 11:36 Solu-Medrol 125 Mg Administered 08/02/19 11:37 Dose 125 mg .ROUTE .STK-MED ONE Lab/Rad Data: Laboratory Result Diagrams 08/02/19 11:06 Laboratory Results 08/02/19 08/02/19 08/02/19 Range/Units 11:45 11:35 11:20 Sodium (137-145) mmol/L Potassium (3.5-5.1) mmol/L Chloride (98-107) mmol/L Carbon Dioxide (22-30) mmol/L Anion Gap (5-15) MEQ/L BUN (7-17) mg/dL Creatinine (0.52-1.04) mg/dL Estimated GFR ML/MIN Glucose (74-106) mg/dL Lactic Acid 1.5 (0.4-2.0) Calcium (8.4-10.2) mg/dL Total Bilirubin (0.2-1.3) mg/dL AST (14-36) U/L ALT (0-35) U/L Alkaline Phosphatase (38-126) U/L Creatine Kinase (30-135) U/L Troponin I < 0.012 (0.000-0.034) ng/mL NT-Pro-B Natriuret Pep (0-900) pg/mL Serum Total Protein (6.3-8.2) g/dL Albumin (3.5-5.0) g/dL Influenza Type A Ag NEGATIVE (NEGATIVE) Influenza Type B Ag NEGATIVE (NEGATIVE) RSV (PCR) NEGATIVE (Negative) 08/02/19 Range/Units 11:06 Sodium 143 (137-145) mmol/L Potassium 4.0 (3.5-5.1) mmol/L Chloride 105 (98-107) mmol/L Carbon Dioxide 28 (22-30) mmol/L Anion Gap 13.7 (5-15) MEQ/L BUN 21 H (7-17) mg/dL Creatinine 1.45 H (0.52-1.04) mg/dL Estimated GFR 38.9 ML/MIN Glucose 106 (74-106) mg/dL Lactic Acid (0.4-2.0) Calcium 11.0 H (8.4-10.2) mg/dL Total Bilirubin 0.90 (0.2-1.3) mg/dL AST 27 (14-36) U/L ALT 10 (0-35) U/L Alkaline Phosphatase 54 (38-126) U/L Creatine Kinase 51 (30-135) U/L Troponin I (0.000-0.034) ng/mL NT-Pro-B Natriuret Pep 500 (0-900) pg/mL Serum Total Protein 8.2 (6.3-8.2) g/dL Albumin 4.5 (3.5-5.0) g/dL Influenza Type A Ag (NEGATIVE) Influenza Type B Ag (NEGATIVE) RSV (PCR) (Negative) - Progress Air Movement: fair Progress Note: 08/02/19 13:16 I advised admission. The patient refused. I also offered transportation diffuse patient is alert and oriented. The daughter in the room. I explained the risk. Patient understood. She refused to say that I did not want to stay in the hospital. She understood the risk and is left AGAINST MEDICAL ADVICE. Blood Culture(s) Obtained: Yes Antibiotics given: Yes Counseled pt/family regarding: lab results, diagnosis, need for follow-up, rad results - Departure Departure Disposition: AMA Clinical Impression: COPD with exacerbation Condition: Fair Critical Care Time: No Referrals: VIOLET WANG [Primary Care Provider] - 08/03/19 Instructions: Exacerbation of COPD (DC) Plan of Treatment: offered admission. Patient refused patient left AMA Prescriptions: Azithromycin 250 mg [Zithromax 250 MG TABLET] 250 mg PO ZPACK #6 tablet Prednisone 10 mg [Deltasone 10 mg] 10 mg PO BID 7 Days #14 tablet
[2019-08-02] MEDS ORDERED: BABY ASPIRIN 81 MG CHEW ONE (11:36)
[2019-08-02] MEDS ORDERED: Zithromax 500 MG/ 250 ML NaCl Premix 500 MG/250 ML IVPB IV ONE (11:36)
[2019-08-02] MEDS ORDERED: ROCEPHIN 1 Gm-D5w 50 ml Bag** 1 G/50 ML IVPB IV ONE (11:36)
[2019-08-02] MEDS ORDERED: solu-MEDROL 125 MG ONE (11:36)
--- NOTE | 2019-08-02 11:41 | XRAY ---
Indication: Short of breath. Comparison: June 20, 2019. Portable chest demonstrates right lung base clearing with now minimal fibrosis/scarring. Stable left base fibrosis/scarring. Remaining heart and lungs unremarkable.
[2019-08-02 12:38] LABS: ALBUMIN 4.5 g/dL (3.5-5.0); ANION GAP 13.7 MEQ/L (5-15); BILIRUBIN,TOTAL 0.9 mg/dL (0.2-1.3); Creatinine 1 1.45 mg/dL (0.52-1.04); Total Protein 8.2 g/dL (6.3-8.2)
[2019-08-02 12:47] LABS: INFLUENZA A NEGATIVE (NEGATIVE); INFLUENZA B NEGATIVE (NEGATIVE); RESPIRATORY SYNCTIAL VIRUS NEGATIVE (Negative)
[2019-08-02 13:26] VITALS: BP 140/69; PULSE 70; O2SAT 98
== END 2019-08-02 13:42 | disposition left against medical advice (07) ==
LOC: ED 10:51
DX: J44.1 Chronic obstructive pulmonary disease with (acute) exacerbation (principal); I10 Essential (primary) hypertension; I50.9 Heart failure, unspecified; I25.10 Atherosclerotic heart disease of native coronary artery without angina pectoris; E78.00 Pure hypercholesterolemia, unspecified; I25.2 Old myocardial infarction; Z79.899 Other long term (current) drug therapy; E11.9 Type 2 diabetes mellitus without complications; E03.9 Hypothyroidism, unspecified
CPT/HCPCS: 36000; 36415; 71045; 80053; 82550; 83605; 83880; 84484; 87040; 87631; 93005; 93041; 94640; 96365; 96367; 96374; 99284; J0456; J0696; J2930; A9270-GY